=== PATIENT | female | born 1985 | race Caucasian/White ===

== ENCOUNTER → 2017-09-06 | Outpatient (CLI) | payer MEDICAID ==
[2016-01-25 16:27] VITALS: BMI 23.6
[~2017-09-06] MED LIST: CLON-327 PO; CYCL10TA29 PO; HYDR-385 PO; HYDR-4228 PO; HYDR-4309 PO; IBUP200C74 PO; IBUP800T37 PO; LOR5/325 PO; MEDR150D IM; METH4TAB66 PO; NO HOME MEDS; ONDA4TAB PO; PREN-129 PO; PROM-110 PO; TRAM-420 PO
--- NOTE | 2017-09-06 16:33 | RADIOLOGY IMAGING REPORT ---
FACILITY: [facility] [place] PATIENT NAME: Tamica Robles : 1985 MR: [id number] V: [id number] EXAM DATE: ORDERING PHYSICIAN: RAMBO HURD TECHNOLOGIST: Location: [facility] [place] Patient: Tamica Robles : 1985 Visit/Account:[id number] Date of Sevice: 09/06/2017 GALLBLADDER History: Right upper quadrant pain. Comparison study: None Procedure: There has been satisfactory and complete grayscale ultrasonic evaluation of the abdomen. Findings: Liver: The liver has normal echotexture and no focal lesions are seen. Surface contour is smooth. The re is hepatopedal blood flow in the main portal vein and there is no abdominal ascites. Biliary: The gallbladder is normal and there is no gallstone disease or biliary ductal dilatation. T he sonographic Louie sign is negative. The common bile duct measures 2.8 mm. Pancreas: The pancreas is normal size and echotexture. No peripancreatic fluid collections are identi fied. Right kidney: There is no hydronephrosis in the right kidney. IMPRESSION: 1. Normal gallbladder without gallstone disease or biliary ductal dilatation. 2. Normal liver. Report Dictated By: Kamran Muñiz MD at 09/06/2017 2:27 PM Report E-Signed By: Kamran Muñiz MD at 09/06/2017 4:28 PM WSN:[id number]
== END ==
LOC: US 11:43
PROVIDERS: ATTEND Student in an Organized Health Care Education/Training Program
DX: R10.11 Right upper quadrant pain (principal)
CPT/HCPCS: 76705

== ENCOUNTER → 2017-09-12 | Outpatient (CLI) | payer MEDICAID ==
[2016-01-25 16:27] VITALS: BMI 23.6
[~2017-09-12] MED LIST changes: +SINCALIDE 5 MCG VIAL INJ ONE; +WATER FOR INJ,STERILE 20 ML 20 ML ONE
--- NOTE | 2017-09-12 15:34 | RADIOLOGY IMAGING REPORT ---
FACILITY: [facility] PATIENT NAME: Tamica Robles : 1985 MR: [id number] V: [id number] EXAM DATE: ORDERING PHYSICIAN: RAJEEV PRITCHARD TECHNOLOGIST: Location: [facility] [place] Patient: Tamica Robles : 1985 Visit/Account:[id number] Date of Sevice: 09/12/2017 Nuclear hepatobiliary scan with Kinevac. HISTORY: Right upper quadrant pain. COMPARISON: Gallbladder ultrasound 09/06/2017. 6.1 mCi technetium 99 mebrofenin was injected intravenously. Images were obtained of the upper abdom en before and after administration of intravenous Kinevac. FINDINGS: A heterogeneous area is present in the right upper abdomen probably representing attenuation by overl kee soft tissues. Activity is present in the right arm probably representing pooling of radionuclid e in the venous system above the IV injection site. Hepatic clearance is otherwise unremarkable. In tra and extrahepatic bile duct activity are present at five minutes. Gallbladder activity is present at 13 minutes. Intestinal activity is present at eight minutes. Following Kinevac administration t he gallbladder ejection fraction is 89% which is within normal limits. Following the Kinevac administration the patient experienced nausea, right upper quadrant pain, and s weating. The nausea and right upper quadrant pain were similar but much more intense compared to her usual symptoms. Her symptoms had begun to subside before she was discharged from the department. IMPRESSION: Patent cystic duct. Reproduction of symptoms following Kinevac administration suggesting possible biliary dyskinesia. Report Dictated By: Shola Gill MD at 09/12/2017 3:18 PM Report E-Signed By: Shola Gill MD at 09/12/2017 3:31 PM WSN:[email or web address]
== END ==
LOC: NUC 01:29
PROVIDERS: ATTEND Surgery
DX: R93.2 Abnormal findings on diagnostic imaging of liver and biliary tract (principal)
CPT/HCPCS: 78226; A9537; J2805

== ENCOUNTER 2017-09-27 09:00 | Emergency (ER) | payer MEDICAID ==
[2016-01-25 16:27] VITALS: Wt 70.3 kg
[~2017-09-27 09:00] MED LIST changes: -SINCALIDE 5 MCG VIAL INJ ONE; -WATER FOR INJ,STERILE 20 ML 20 ML ONE
--- NOTE | 2017-09-27 09:03 | ER Report ---
History and Physical Time Seen By MD: 09:03 STEPHANIE/JULIA This is a 32-year-old female who presents to the emergency department complaining of worsening right upper quadrant pain and nausea and vomiting for the past 2 weeks. She states that she has had the same yet worsening symptoms ongoing for the past 2 months, but the symptoms have worsened over the past 2 weeks. Within the past 3 weeks she has had to pull lab draws, a right upper quadrant ultrasound, and a HIDA scan. All of the tests have been normal thus far. She says the pain has not improved. She has an appointment to see Dr. Padilla on October 01. She denies fever chills. No chest pain. The pain is contained in the right upper quadrant yet sometimes radiates to the back. She denies any recent trauma. She has no urinary symptoms. Remainder of the 14 system rev: Yes Allergies: Coded Allergies: No Known Drug Allergies (Unverified , 09/27/17) Home Meds Discontinued Scripts Ibuprofen (IBUPROFEN) 800 Mg Tablet, 800 MG PO Q8H@04,12,20, #30 TAB 0 Refills Prov:RAMBO HURD 01/26/16 Reviewed Nurses Notes: Yes Old Medical Records Reviewed: Yes Hx Smoking: Yes Smoking Status: Current: Every Day Smoker Exposure to Second Hand Smoke?: Yes Hx Substance Use Disorder: Yes (narcotics) Hx Alcohol Use: No Constitutional Vital Sign - Last 24 Hours 09/27/17 09/27/17 09/27/17 09/27/17 09:00 09:05 09:15 09:20 Temp 97.3 Pulse 71 62 Resp 16 B/P (MAP) 115/82 115/82 (93) 116/69 (85) Pulse Ox 95 95 85 O2 Delivery Room Air 09/27/17 09/27/17 09/27/17 09/27/17 09:30 09:35 09:45 09:50 Pulse 52 54 B/P (MAP) 104/72 (83) 118/75 (89) Pulse Ox 94 95 09/27/17 09/27/17 09/27/17 09/27/17 10:00 10:05 10:15 10:20 Pulse 57 51 B/P (MAP) 130/103 (112) 107/76 (86) Pulse Ox 94 94 09/27/17 09/27/17 09/27/1709/27/18 10:25 10:30 10:40 10:45 Pulse 62 56 B/P (MAP) 108/75 (86) 102/79 (87) Pulse Ox 95 95 09/27/17 09/27/17 10:55 11:00 Pulse 66 B/P (MAP) 115/94 (101) Pulse Ox 97 Intake and Output 09/27/17 09/27/17 09/28/17 14:59 22:59 06:59 Intake Total 1000 ml Balance 1000 ml Physical Exam General Appearance: The patient is alert, has no immediate need for airway protection and no current signs of toxicity. Eyes: Pupils equal and round no injection. Respiratory: cta b/l no w/r/r Cardiac: regular rate and rhythm Gastrointestinal: Abdomen is soft with TTP of the RUQ. No midepigastric TTP Extremities have full range of motion and are non tender. Skin: No rashes or lesions. DIFFERENTIAL DIAGNOSIS: After history and physical exam differential diagnosis was considered for abdominal pain including but not limited to appendicitis, cholecystitis, gastritis and urinary tract infection, ectopic Medical Decision Making Data Points Result Diagram: 09/27/17 0909 09/27/17 0909 Laboratory Hematology Test 09/27/17 09:06 09/27/17 09:09 Urine Color Lyndsey Urine Clarity Slightly-cloudy Urine pH 5.0 pH (4.8-9.5) Urine Specific [place] 1.032 Urine Protein 100 mg/dL (NEGATIVE) Urine Glucose (UA) Negative mg/dL (NEGATIVE) Urine Ketones Trace mg/dL (NEGATIVE) Urine Blood Negative (NEGATIVE) Urine Nitrite Negative (NEGATIVE) Urine Bilirubin Small (NEGATIVE) Urine Urobilinogen 2.0 mg/dL (0.2-1.9) Urine Leukocyte Esterase Trace (NEGATIVE) Urine RBC 1 /HPF (0-2/HPF) Urine WBC 5 /HPF (0-5/HPF) Urine Squamous Epithelial Cells Many /LPF (</=FEW) Urine Bacteria Negative /HPF (NONE-FEW) Urine Mucus Few /HPF (NONE-FEW) Urine HCG, Qualitative Negative (NEGATIVE) Red Blood Count 5.24 M/uL (4.17-5.56) Mean Corpuscular Volume 89.0 fL (80.0-96.0) Mean Corpuscular Hemoglobin 32.0 pg (26.0-33.0) Mean Corpuscular Hemoglobin Concent 35.9 g/dL (32.0-36.0) Red Cell Distribution Width 12.4 % (11.5-14.5) Mean Platelet Volume 8.0 fL (7.2-11.1) Neutrophils (%) (Auto) 44.1 % (39.4-72.5) Lymphocytes (%) (Auto) 46.4 % (17.6-49.6) Monocytes (%) (Auto) 7.7 % (4.1-12.4) Eosinophils (%) (Auto) 0.9 % (0.4-6.7) Basophils (%) (Auto) 0.9 % (0.3-1.4) Nucleated RBC Relative Count (auto) 0.1 /100WBC Neutrophils # (Auto) 2.7 K/uL (2.0-7.4) Lymphocytes # (Auto) 2.9 K/uL (1.3-3.6) Monocytes # (Auto) 0.5 K/uL (0.3-1.0) Eosinophils # (Auto) 0.1 K/uL (0.0-0.5) Basophils # (Auto) 0.1 K/uL (0.0-0.1) Nucleated RBC Absolute Count (auto) 0.01 K/uL Sodium Level 143 mmol/L (137-145) Potassium Level 3.3 mmol/L (3.5-5.0) Chloride Level 106 mmol/L (98-107) Carbon Dioxide Level 21 mmol/L (22-31) Blood Urea Nitrogen 12 mg/dl (7-18) Creatinine 0.80 mg/dl (0.52-1.04) Glomerular Filtration Rate Calc > 60.0 Random Glucose 109 mg/dl (75-110) Calcium Level 9.6 mg/dl (8.4-10.2) Total Bilirubin 0.7 mg/dl (0.2-1.3) Aspartate Amino Transf (AST/SGOT) 24 U/L (0-35) Alanine Aminotransferase (ALT/SGPT) 25 U/L (0-56) Alkaline Phosphatase 100 U/L (0-126) Total Protein 7.8 gm/dl (6.3-8.2) Albumin 4.7 g/dl (3.5-5.0) Lipase 94 U/L (23-300) Chemistry Test 09/27/17 09:06 09/27/17 09:09 Urine Color Lyndsey Urine Clarity Slightly-cloudy Urine pH 5.0 pH (4.8-9.5) Urine Specific [place] 1.032 Urine Protein 100 mg/dL (NEGATIVE) Urine Glucose (UA) Negative mg/dL (NEGATIVE) Urine Ketones Trace mg/dL (NEGATIVE) Urine Blood Negative (NEGATIVE) Urine Nitrite Negative (NEGATIVE) Urine Bilirubin Small (NEGATIVE) Urine Urobilinogen 2.0 mg/dL (0.2-1.9) Urine Leukocyte Esterase Trace (NEGATIVE) Urine RBC 1 /HPF (0-2/HPF) Urine WBC 5 /HPF (0-5/HPF) Urine Squamous Epithelial Cells Many /LPF (</=FEW) Urine Bacteria Negative /HPF (NONE-FEW) Urine Mucus Few /HPF (NONE-FEW) Urine HCG, Qualitative Negative (NEGATIVE) White Blood Count 6.2 k/uL (4.5-11.0) Red Blood Count 5.24 M/uL (4.17-5.56) Hemoglobin 16.8 g/dL (12.0-16.0) Hematocrit 46.6 % (34.0-47.0) Mean Corpuscular Volume 89.0 fL (80.0-96.0) Mean Corpuscular Hemoglobin 32.0 pg (26.0-33.0) Mean Corpuscular Hemoglobin Concent 35.9 g/dL (32.0-36.0) Red Cell Distribution Width 12.4 % (11.5-14.5) Platelet Count 262 K/uL (150-450) Mean Platelet Volume 8.0 fL (7.2-11.1) Neutrophils (%) (Auto) 44.1 % (39.4-72.5) Lymphocytes (%) (Auto) 46.4 % (17.6-49.6) Monocytes (%) (Auto) 7.7 % (4.1-12.4) Eosinophils (%) (Auto) 0.9 % (0.4-6.7) Basophils (%) (Auto) 0.9 % (0.3-1.4) Nucleated RBC Relative Count (auto) 0.1 /100WBC Neutrophils # (Auto) 2.7 K/uL (2.0-7.4) Lymphocytes # (Auto) 2.9 K/uL (1.3-3.6) Monocytes # (Auto) 0.5 K/uL (0.3-1.0) Eosinophils # (Auto) 0.1 K/uL (0.0-0.5) Basophils # (Auto) 0.1 K/uL (0.0-0.1) Nucleated RBC Absolute Count (auto) 0.01 K/uL Glomerular Filtration Rate Calc > 60.0 Calcium Level 9.6 mg/dl (8.4-10.2) Total Bilirubin 0.7 mg/dl (0.2-1.3) Aspartate Amino Transf (AST/SGOT) 24 U/L (0-35) Alanine Aminotransferase (ALT/SGPT) 25 U/L (0-56) Alkaline Phosphatase 100 U/L (0-126) Total Protein 7.8 gm/dl (6.3-8.2) Albumin 4.7 g/dl (3.5-5.0) Lipase 94 U/L (23-300) Urinalysis Test 09/27/17 09:06 Urine Color Lyndsey Urine Clarity Slightly-cloudy Urine pH 5.0 pH (4.8-9.5) Urine Specific [place] 1.032 Urine Protein 100 mg/dL (NEGATIVE) Urine Glucose (UA) Negative mg/dL (NEGATIVE) Urine Ketones Trace mg/dL (NEGATIVE) Urine Blood Negative (NEGATIVE) Urine Nitrite Negative (NEGATIVE) Urine Bilirubin Small (NEGATIVE) Urine Urobilinogen 2.0 mg/dL (0.2-1.9) Urine Leukocyte Esterase Trace (NEGATIVE) Urine RBC 1 /HPF (0-2/HPF) Urine WBC 5 /HPF (0-5/HPF) Urine Squamous Epithelial Cells Many /LPF (</=FEW) Urine Bacteria Negative /HPF (NONE-FEW) Urine Mucus Few /HPF (NONE-FEW) Urine HCG, Qualitative Negative (NEGATIVE) EKG/Imaging Imaging Results: Ultrasound of the RUQ was obtained. The results of the study are normal. The study was read by the radiologist. I viewed the images myself on the PACS system. ED Course/Re-evaluation Clinical Indication for ER IV: Hydration, IV Access ED Course This is a 32-year-old female who presents to the emergency department with right upper quadrant pain that has been ongoing for almost 2 months but has worsened over the past 2 weeks. She has had 2 normal right upper quadrant ultrasounds in the past 3 weeks and a normal HIDA scan as well. She has normal labs today to include her LFTs and lipase. No fever or chills. No recent trauma , and the remainder of her abdominal exam is benign. She has an appointment to see Dr. Padilla on Sunday to discuss her symptoms and possible definitive care. She received IV fluids, antinausea meds, and anti-spasmodic meds. She is unhappy with her care, and has requested several times to have her "stomach cut open right now." The nurse's and myself spoke with her on multiple occasions of how emergent surgery is not indicated. I offered to order a CT scan of the abdomen and pelvis, although I do not think it is indicated in this setting. She is refusing further treatment, and is signing out AMA. I encouraged her to follow up on Sunday as scheduled. Decision to Disposition Date: Sep 27, 2017 Decision to Disposition Time: 11:50 Depart Departure Latest Vital Signs Vital Signs Date Time Temp Pulse Resp B/P (MAP) Pulse Ox O2 Delivery O2 Flow Rate FiO2 09/27/17 11:00 115/94 (101) 09/27/17 10:55 66 97 09/27/17 09:00 97.3 16 Room Air Impression: Primary Impression: Abdominal pain Condition: Condition Unchanged Disposition: AGAINST MED ADV / DISCONT CARE Referrals: RAMBO HURD DO (PCP) New Scripts No Active Prescriptions or Reported Meds Patient Instructions: Acute Abdominal Pain (ED) Problem Qualifiers Primary Impression: Abdominal pain Abdominal location: right upper quadrant Qualified Codes: R10.11 - Right upper quadrant pain LAMONT MARTINEZ MD Sep 27, 2017 09:03
[2017-09-27] MEDS ORDERED: ONDANSETRON 4 MG/2 ML VIAL IVP ONE (09:10)
[2017-09-27] MEDS ORDERED: NS(*) 0.9% 1000 ML BAG 1,000 ML IV ONE (09:10)
[2017-09-27 09:19] LABS: PLATELET COUNT, AUTOMATED 262 K/uL (150-450)
[2017-09-27] MEDS ORDERED: DICYCLOMINE HCL 10 MG CAP PO ONE (10:35)
--- NOTE | 2017-09-27 10:47 | RADIOLOGY IMAGING REPORT ---
FACILITY: [facility] [place] PATIENT NAME: Tamica Robles : 1985 MR: [id number] V: [id number] EXAM DATE: ORDERING PHYSICIAN: LAMONT MARTINEZ TECHNOLOGIST: Location: [facility] Patient: Tamica Robles : 1985 Visit/Account:[id number] Date of Sevice: 09/27/2017 GALLBLADDER History: 32-year-old female with worsening right upper quadrant pain. Comparison study: Abdominal ultrasound from September 06, 2017. Procedure: There has been satisfactory and complete grayscale ultrasonic evaluation of the abdomen. Findings: Liver: The liver has normal echotexture and no focal lesions are seen. Surface contour is smooth. The re is hepatopedal blood flow in the main portal vein and there is no abdominal ascites. Biliary: The gallbladder is normal and there is no gallstone disease or biliary ductal dilatation. T he sonographic Louie sign shows mild sensitivity in the right upper quadrant, but the significance o r etiology of this finding is uncertain. The common bile duct measures 2.2 mm. Pancreas: Normal. No peripancreatic fluid collections seen. Kidneys: There is no hydronephrosis involving the right kidney. IMPRESSION: 1. Normal abdominal ultrasound. Normal gallbladder without gallstone disease or biliary ductal dila tation. Note the patient did have some sensitivity during imaging of the right upper quadrant in the region of the gallbladder, but the significance or etiology of this finding is uncertain. Report Dictated By: Kamran Muñiz MD at 09/27/2017 10:39 AM Report E-Signed By: Kamran Muñiz MD at 09/27/2017 10:43 AM WSN:[email or web address]
[2017-09-27] MEDS ORDERED: METOCLOPRAMIDE 10 MG/2 ML SDV IVP ONE (11:20)
[2017-09-27] MEDS ORDERED: diphenhydrAMINE 50 MG/ML VIAL IVP ONE (11:20)
[2017-09-27 11:39] VITALS: BP 124/73
== END 2017-09-27 11:40 | disposition left against medical advice (07) ==
LOC: ER 09:03
DX: R10.11 Right upper quadrant pain (principal)
CPT/HCPCS: 76705; 81001; 81025; 83690; 85025; 96361; 96374; 96375; 99284; J1200; J2405; J2765; J7030; 82040; 82247; 82310; 82374; 82435; 82565; 82947; 84075; 84132; 84155; 84295; 84450; 84460; 84520

== ENCOUNTER 2017-10-04 01:01 | Day surgery (SDC) | payer MEDICAID ==
[2016-01-25 16:27] VITALS: Ht 170.2 cm; Wt 67.1 kg
[~2017-10-04] VITALS: Ht 170.2 cm; Wt 67.1 kg
[2017-10-04] VITALS (7 sets, daily range): BP systolic 113–131; BP diastolic 62–81
[2017-10-04] MEDS ORDERED: ROPIVACAINE 0.5% 20 ML VIAL ONE ×2 (07:27→10:53)
[2017-10-04] MEDS ORDERED: fentaNYL CITR 250 MCG/5 ML AMP ONE (08:08)
[2017-10-04] MEDS ORDERED: PROPOFOL EMUL(*) 10MG/ML 20 ML 20 ML ONE (08:17)
[2017-10-04] MEDS ORDERED: ONDANSETRON 4 MG/2 ML VIAL ONE (08:17)
[2017-10-04] MEDS ORDERED: LIDOCAINE MPF 1% 5 ML VIAL ONE (08:17)
[2017-10-04] MEDS ORDERED: DEXAMETHASONE SOD PHOS 10MG/ML ONE (08:17)
[2017-10-04] MEDS ORDERED: KETAMINE HCL 200 MG/20 ML MDV ONE (08:19)
[2017-10-04 08:49] LABS: PLATELET COUNT, AUTOMATED 225 K/uL (150-450)
[2017-10-04] MEDS ORDERED: MIDAZOLAM 2 MG/2 ML VIAL IVP PRN (09:05)
[2017-10-04] MEDS ORDERED: INDOCYANINE GREEN 25 MG VIAL IVP ONE (09:05)
[2017-10-04] MEDS ORDERED: NORMOSOL R SOLN(*) 1000 ML BAG 1,000 ML IV PRN (09:05)
[2017-10-04] MEDS ORDERED: FAMOTIDINE 20 MG TAB PO ONE (09:05)
[2017-10-04] MEDS ORDERED: AMPICILLIN/SULBACT (*) 3 GM VL 3 GM in NS(*) 0.9% 100 ML BAG 100 ML IVPB ONE (09:05)
[2017-10-04] MEDS ORDERED: LIDOCAINE/SOD BICARB 8.4% SYR ID ONE (09:05)
[2017-10-04] MEDS ORDERED: ACETAMINOPHEN(*)1000 MG/100 ML 100 ML IVPB ONE (10:58)
[2017-10-04] MEDS ORDERED: ROCURONIUM BROM 10 MG/ML 10 ML ONE (11:00)
[2017-10-04] MEDS ORDERED: HALOPERIDOL LACT 5 MG/ML VIAL IM ONE (11:23)
[2017-10-04] MEDS ORDERED: fentaNYL CITR 100 MCG/2 ML AMP ONE ×2 (11:51→12:39)
[2017-10-04] MEDS ORDERED: DOCU-416 PO (12:34)
[2017-10-04] MEDS ORDERED: OXYC-854 PO (12:34)
--- NOTE | 2017-10-04 12:37 | Short(Outpt) Discharge Summary ---
Discharge Summary Reason for Hosp/Final Diag: (1) Biliary colic symptom Status: Chronic Hospital Course & Plan: Robotic cholecystectomy completed without problems. (2) Abdominal pain Status: Acute Departure Discharge to: Home, Self Care Discharge Instructions Home Meds Active Scripts Docusate Sodium (COLACE) 100 Mg Capsule, 1 CAP PO BID, #30 CAP 0 Refills TAKE WITH A FULL GLASS OF WATER Prov:RAJEEV PRITCHARD MD 10/04/17 Oxycodone Hcl/Acet 5/325 Mg (ENDOCET 5-325 TABLET) 1 Each Tablet, 1-2 TAB PO Q4H Y for PAIN, #30 TAB 0 Refills Prov:RAJEEV PRITCHARD MD 10/04/17 Ondansetron (ZOFRAN ODT) 4 Mg Tab.rapdis, 1 TAB PO TID, #10 TAB.SHAKA 0 Refills Prov:RAJEEV PRITCHARD MD 10/01/17 Discontinued Scripts Ibuprofen (IBUPROFEN) 800 Mg Tablet, 800 MG PO Q8H@04,12,20, #30 TAB 0 Refills Prov:RAMBO HURD DO 01/26/16 Follow up Referrals: General Surgery - 10/23/17 @ Surgery, General with Rajeev Pritchard Md You have a follow up appointment scheduled with Dr. Pritchard on 10/23/17, at 10:00am. Diet: Regular Activity: As Tolerated Special Instructions: You may remove the white surgical dressing on 10/06/17, then you can shower. After showering, leave the incisions open to air but leave the steristrips in place until they fall off on their own. Do not immerse the incisions for 2 weeks. Problem Qualifiers (1) Abdominal pain: Abdominal location: right upper quadrant Qualified Codes: R10.11 - Right upper quadrant pain RAJEEV PRITCHARD MD Oct 04, 2017 12:37
--- NOTE | 2017-10-04 12:44 | Post Operative Progress Note ---
Post Operative Progress Note Date: Oct 04, 2017 Time: 12:37 Surgeon: Drew Dictation number: [id number] Anesthesia: GETA by Dr. Cruz Pre-Op Diagnosis: Biliary colic Post-Op Diagnosis: VAIBHAV Findings: C/W dx Procedure(s): Robotic cholecystectomy Specimen Removed:(May be N/A): GB and contents Complications: None Fluids: See anesthesia record Estimated Blood Loss: Minimal Date OP Note Dictated: Oct 04, 2017 Time OP Note Dictated: 12:38 RAJEEV PRITCHARD MD Oct 04, 2017 12:43
--- NOTE | 2017-10-04 15:27 | OPERATIVE REPORT 1 ---
EVENT DATE: October 04, 2017 SURGEON: Shahab Russell MD ANESTHESIOLOGIST: Savage Cruz MD ANESTHESIA: General endotracheal anesthesia. PREOPERATIVE DIAGNOSIS Biliary colic. POSTOPERATIVE DIAGNOSIS Biliary colic. PROCEDURE PERFORMED Robotic cholecystectomy. COMPLICATIONS None. CONDITION Stable. BLOOD LOSS Minimal. INDICATIONS This is a 32-year-old female who presented to my office with postprandial right upper quadrant abdominal pain that was also made worse with especially greasy foods. She had a normal right upper quadrant ultrasound and essentially a normal HIDA scan, but the CCK really exacerbated her symptoms and exactly mimicked the symptoms that she presented to me with. We discussed further workup, but she was requesting to have her gallbladder out. DESCRIPTION OF PROCEDURE The patient was brought to the operating room, placed supine on the operating table. General endotracheal anesthesia was administered, and her abdomen was prepped and draped in a sterile fashion. Timeout was completed. I injected the infraumbilical skin with 0.5% ropivacaine plain. I made a curvilinear smiley face-type incision in the infraumbilical rim and dissected through the dermis and subcutaneous fat. I identified the midline fascia, made a vertical incision in the midline fascia, then grasped the fascial edges with Tera clamps, and then entered the peritoneal cavity with my finger. I placed two interrupted 0 Vicryl sutures transversely through the vertical fascial defect and inserted a 12 mm robotic Narciso-type port through this and secured it in place with sutures. I insufflated the abdomen to a pressure of 15 mmHg and inserted the robotic camera through this port. Next, I placed an 8 mm port in the right mid abdomen and then two 8 mm ports, one in the left upper quadrant and one in the left mid abdomen under direct visualization. The patient was placed in reverse Trendelenburg and planed towards her left. The robot was brought in and docked and targeted. The instruments were inserted, and I scrubbed out and went to the console. I grasped the fundus of the gallbladder and retracted it towards the patient's right shoulder. She had dense adhesions around the infundibulum, including between the duodenum and the infundibulum, but these were rather easily divided, and the infundibulum was cleaned off. I divided the peritoneum over the medial and lateral aspects of the gallbladder and stripped the peritoneum down and then carefully dissected through the fibrotic tissue in the triangle of Calot. I identified the cystic artery. This was cleaned off circumferentially, and it was clipped proximally and distally and divided between clips. I cleaned off the cystic duct circumferentially and used the Firefly technology with ICG and could clearly see the glowing of the cystic duct as well as the common hepatic duct and common bile duct. I was well away from the common duct system. There were no apparent aberrant duct structures. I then clipped the ducts distally with three clips and one clip at the infundibulum-cystic duct junction and divided the cystic duct between clips. I then divided the posterior attachment of the gallbladder, it from the gallbladder fossa, and then the gallbladder was placed in a surgical specimen retrieval bag and removed from the abdomen through the umbilical port site. I irrigated and dried the right upper quadrant , inspected the cystic duct and arteries, as well as the gallbladder fossa for any bile leaks or bleeding, and there was none. I removed all the instruments, and the robot was undocked. The abdomen was desufflated, and all the ports were removed. I placed a running 0 Vicryl suture through the midline fascia between the first two sutures and then tired all three of these down with good reapproximation of the fascial edges with no remaining fascial defect. The skin at each port site was closed with 4-0 Monocryl running subcuticular sutures. Skin was cleaned and dried, and Steri-Strips were applied, followed by sterile surgical dressings. The patient was awakened, extubated in the operating room, and transported to the recovery room in stable condition having tolerated the procedure without any apparent problems. MATEO
[2017-10-04] MEDS ORDERED: SUGAMMADEX SOD 200 MG/2 ML SDV ONE (15:28)
[2017-10-05] MEDS ORDERED: PREGABALIN 150 MG CAPSULE PO ONE (08:20)
== END 2017-10-04 13:52 | disposition home or self-care (01) ==
LOC: OR 01:01
PROVIDERS: ATTEND Surgery
DX: K80.50 Calculus of bile duct without cholangitis or cholecystitis without obstruction (principal)
CPT/HCPCS: 36415; 47562; 81025; 85025; 88304; J0131; J0295; J1100; J1630; J2001; J2250; J2405; J2704; J2795; J3010; J3490; J7050; S2900

== ENCOUNTER 2017-10-08 09:10 | Emergency (ER) | payer MEDICAID ==
[2016-01-25 16:27] VITALS: Wt 67.1 kg
[~2017-10-08 09:10] MED LIST changes: +DOCU-416 PO; +OXYC-854 PO
[2017-10-08] MEDS ORDERED: NS(*) 0.9% 1000 ML BAG 1,000 ML IV ONE (09:29)
[2017-10-08] MEDS ORDERED: ONDANSETRON 4 MG/2 ML VIAL IVP ONE (09:30)
[2017-10-08] MEDS ORDERED: HYDROmorphone* 1 MG/ML 1 MG/ML ML IVP ONE (09:30)
[2017-10-08] MEDS ORDERED: IOPAMIDOL 76% 75 ML INFUS BTL 75 ML ONE (09:50)
--- NOTE | 2017-10-08 09:53 | ER Report ---
History and Physical Time Seen By MD: 09:30 Hx. of Stated Complaint: pt reports umbilical pain post op choley last HPI/ROS CHIEF COMPLAINT: Abdominal pain HISTORY OF PRESENT ILLNESS: Patient is a 32-year-old female here with complaints of abdominal pain status post cholecystectomy on October 04. Patient reports that she has taken all of her home pain medications which equates approximately 30 oxycodone without significant relief of symptoms. Patient reports worsening pain for which she called her surgeon who recommended evaluation in the emergency department. Patient has been passing bowel movements with some pain. She denies fevers, chills, chest pain, shortness breath. REVIEW OF SYSTEMS: Constitutional: No fever, no chills. Eyes: No discharge. ENT: No sore throat. Cardiovascular: No chest pain, no palpitations. Respiratory: No cough, no shortness of breath. Gastrointestinal: + diffuse abdominal pain, no vomiting. Genitourinary: No hematuria. Musculoskeletal: No back pain. Skin: No rashes. Neurological: No headache. Allergies: Coded Allergies: No Known Drug Allergies (Unverified , 10/08/17) Home Meds Active Scripts Naproxen Sodium (ALEVE) 220 Mg Capsule, 440 MG PO TID for 7 Days, #30 CAPSULE Prov:PHILIPP MICHAUD DO 10/08/17 Docusate Sodium (COLACE) 100 Mg Capsule, 1 CAP PO BID, #30 CAP 0 Refills TAKE WITH A FULL GLASS OF WATER Prov:RAJEEV PRITCHARD MD 10/04/17 Oxycodone Hcl/Acet 5/325 Mg (ENDOCET 5-325 TABLET) 1 Each Tablet, 1-2 TAB PO Q4H Y for PAIN, #30 TAB 0 Refills Prov:RAJEEV PRITCHARD MD 10/04/17 Ondansetron (ZOFRAN ODT) 4 Mg Tab.rapdis, 1 TAB PO TID, #10 TAB.SHAKA 0 Refills Prov:RAJEEV PRITCHARD MD 10/01/17 Hx Smoking: Yes (1/2 -1 PPD X 17 YRS) Smoking Status: Current: Every Day Smoker Exposure to Second Hand Smoke?: Yes Hx Substance Use Disorder: Yes (LAST USE 09/29/17) Hx Alcohol Use: No Constitutional Vital Sign - Last 24 Hours 10/08/17 10/08/17 10/08/17 10/08/17 09:10 09:17 09:25 09:30 Temp 97.5 Pulse 81 74 Resp 18 B/P (MAP) 105/78 105/78 (87) 111/76 (88) Pulse Ox 94 95 O2 Delivery Room Air 10/08/17 10/08/17 10/08/17 10/08/17 09:40 09:55 10:00 10:10 Pulse 64 58 54 B/P (MAP) 112/74 (87) Pulse Ox 94 92 93 10/08/17 10/08/17 10/08/17 10/08/17 10:15 10:45 10:50 11:00 Pulse 62 57 54 B/P (MAP) 112/72 (85) Pulse Ox 93 93 93 10/08/17 10/08/17 11:05 11:11 Pulse 58 B/P (MAP) 117/68 (84) Pulse Ox 93 Physical Exam General Appearance: The patient is alert, has no immediate need for airway protection and no signs of toxicity. + mild distress secondary to pain Eyes: Pupils equal and round no pallor or injection. ENT, Mouth: Mucous membranes are moist. Respiratory: There are no retractions, lungs are clear to auscultation. Cardiovascular: Regular rate and rhythm. Gastrointestinal: Abdomen is soft and + diffusely tender on palpation without distension, no masses, bowel sounds normal. Neurological: No focal deficits Skin: + well healing surgical wounds on abdomen without drainage Musculoskeletal: Neck is supple non tender. Extremities are nontender, nonswollen and have full range of motion. DIFFERENTIAL DIAGNOSIS: After history and physical exam differential diagnosis was considered for postoperative pain, infection, abscess, postop bleeding Medical Decision Making Data Points Result Diagram: 10/08/1740 10/08/17 0940 Laboratory Hematology Test 10/08/17 09:17 10/08/17 09:40 Urine Color Yellow Urine Clarity Clear Urine pH 5.0 pH (4.8-9.5) Urine Specific [place] 1.027 Urine Protein Negative mg/dL (NEGATIVE) Urine Glucose (UA) Negative mg/dL (NEGATIVE) Urine Ketones Negative mg/dL (NEGATIVE) Urine Blood Negative (NEGATIVE) Urine Nitrite Negative (NEGATIVE) Urine Bilirubin Negative (NEGATIVE) Urine Urobilinogen 2.0 mg/dL (0.2-1.9) Urine Leukocyte Esterase Negative (NEGATIVE) Urine RBC None /HPF (0-2/HPF) Urine WBC 2 /HPF (0-5/HPF) Urine Squamous Epithelial Cells Many /LPF (</=FEW) Urine Bacteria Negative /HPF (NONE-FEW) Urine Mucus Few /HPF (NONE-FEW) Red Blood Count 5.07 M/uL (4.17-5.56) Mean Corpuscular Volume 89.3 fL (80.0-96.0) Mean Corpuscular Hemoglobin 31.8 pg (26.0-33.0) Mean Corpuscular Hemoglobin Concent 35.7 g/dL (32.0-36.0) Red Cell Distribution Width 12.4 % (11.5-14.5) Mean Platelet Volume 8.5 fL (7.2-11.1) Neutrophils (%) (Auto) 76.5 % (39.4-72.5) Lymphocytes (%) (Auto) 18.1 % (17.6-49.6) Monocytes (%) (Auto) 5.0 % (4.1-12.4) Eosinophils (%) (Auto) 0.1 % (0.4-6.7) Basophils (%) (Auto) 0.3 % (0.3-1.4) Nucleated RBC Relative Count (auto) 0.1 /100WBC Neutrophils # (Auto) 6.8 K/uL (2.0-7.4) Lymphocytes # (Auto) 1.6 K/uL (1.3-3.6) Monocytes # (Auto) 0.4 K/uL (0.3-1.0) Eosinophils # (Auto) 0.0 K/uL (0.0-0.5) Basophils # (Auto) 0.0 K/uL (0.0-0.1) Nucleated RBC Absolute Count (auto) 0.01 K/uL Peripheral Blood Smear Yes Y/N Prothrombin Time 13.0 seconds (12.0-14.4) Prothromb Time International Ratio 0.98 Activated Partial Thromboplast Time 25 seconds (23-35) Sodium Level 140 mmol/L (137-145) Potassium Level 3.4 mmol/L (3.5-5.0) Chloride Level 103 mmol/L (98-107) Carbon Dioxide Level 21 mmol/L (22-31) Blood Urea Nitrogen 9 mg/dl (7-18) Creatinine 0.70 mg/dl (0.52-1.04) Glomerular Filtration Rate Calc > 60.0 Random Glucose 102 mg/dl (75-110) Calcium Level 9.3 mg/dl (8.4-10.2) Total Bilirubin 0.5 mg/dl (0.2-1.3) Aspartate Amino Transf (AST/SGOT) 19 U/L (0-35) Alanine Aminotransferase (ALT/SGPT) 54 U/L (0-56) Alkaline Phosphatase 81 U/L (0-126) Total Protein 7.2 g/dl (6.3-8.2) Albumin 4.3 g/dl (3.5-5.0) Lipase 52 U/L (23-300) Human Chorionic Gonadotropin, Qual Negative (NEGATIVE) Chemistry Test 10/08/17 09:17 10/08/17 09:40 Urine Color Yellow Urine Clarity Clear Urine pH 5.0 pH (4.8-9.5) Urine Specific [place] 1.027 Urine Protein Negative mg/dL (NEGATIVE) Urine Glucose (UA) Negative mg/dL (NEGATIVE) Urine Ketones Negative mg/dL (NEGATIVE) Urine Blood Negative (NEGATIVE) Urine Nitrite Negative (NEGATIVE) Urine Bilirubin Negative (NEGATIVE) Urine Urobilinogen 2.0 mg/dL (0.2-1.9) Urine Leukocyte Esterase Negative (NEGATIVE) Urine RBC None /HPF (0-2/HPF) Urine WBC 2 /HPF (0-5/HPF) Urine Squamous Epithelial Cells Many /LPF (</=FEW) Urine Bacteria Negative /HPF (NONE-FEW) Urine Mucus Few /HPF (NONE-FEW) White Blood Count 8.9 k/uL (4.5-11.0) Red Blood Count 5.07 M/uL (4.17-5.56) Hemoglobin 16.1 g/dL (12.0-16.0) Hematocrit 45.3 % (34.0-47.0) Mean Corpuscular Volume 89.3 fL (80.0-96.0) Mean Corpuscular Hemoglobin 31.8 pg (26.0-33.0) Mean Corpuscular Hemoglobin Concent 35.7 g/dL (32.0-36.0) Red Cell Distribution Width 12.4 % (11.5-14.5) Platelet Count 232 K/uL (150-450) Mean Platelet Volume 8.5 fL (7.2-11.1) Neutrophils (%) (Auto) 76.5 % (39.4-72.5) Lymphocytes (%) (Auto) 18.1 % (17.6-49.6) Monocytes (%) (Auto) 5.0 % (4.1-12.4) Eosinophils (%) (Auto) 0.1 % (0.4-6.7) Basophils (%) (Auto) 0.3 % (0.3-1.4) Nucleated RBC Relative Count (auto) 0.1 /100WBC Neutrophils # (Auto) 6.8 K/uL (2.0-7.4) Lymphocytes # (Auto) 1.6 K/uL (1.3-3.6) Monocytes # (Auto) 0.4 K/uL (0.3-1.0) Eosinophils # (Auto) 0.0 K/uL (0.0-0.5) Basophils # (Auto) 0.0 K/uL (0.0-0.1) Nucleated RBC Absolute Count (auto) 0.01 K/uL Peripheral Blood Smear Yes Y/N Prothrombin Time 13.0 seconds (12.0-14.4) Prothromb Time International Ratio 0.98 Activated Partial Thromboplast Time 25 seconds (23-35) Glomerular Filtration Rate Calc > 60.0 Calcium Level 9.3 mg/dl (8.4-10.2) Total Bilirubin 0.5 mg/dl (0.2-1.3) Aspartate Amino Transf (AST/SGOT) 19 U/L (0-35) Alanine Aminotransferase (ALT/SGPT) 54 U/L (0-56) Alkaline Phosphatase 81 U/L (0-126) Total Protein 7.2 g/dl (6.3-8.2) Albumin 4.3 g/dl (3.5-5.0) Lipase 52 U/L (23-300) Human Chorionic Gonadotropin, Qual Negative (NEGATIVE) Coagulation Test 10/08/17 09:40 Prothrombin Time 13.0 seconds Prothromb Time International Ratio 0.98 Activated Partial Thromboplast Time 25 seconds Urinalysis Test 10/08/17 09:17 Urine Color Yellow Urine Clarity Clear Urine pH 5.0 pH (4.8-9.5) Urine Specific [place] 1.027 Urine Protein Negative mg/dL (NEGATIVE) Urine Glucose (UA) Negative mg/dL (NEGATIVE) Urine Ketones Negative mg/dL (NEGATIVE) Urine Blood Negative (NEGATIVE) Urine Nitrite Negative (NEGATIVE) Urine Bilirubin Negative (NEGATIVE) Urine Urobilinogen 2.0 mg/dL (0.2-1.9) Urine Leukocyte Esterase Negative (NEGATIVE) Urine RBC None /HPF (0-2/HPF) Urine WBC 2 /HPF (0-5/HPF) Urine Squamous Epithelial Cells Many /LPF (</=FEW) Urine Bacteria Negative /HPF (NONE-FEW) Urine Mucus Few /HPF (NONE-FEW) EKG/Imaging Imaging ABDOMEN/PELVIS WITH CONTRAST HISTORY: Abdominal pain status post cholecystectomy on October 04, 2017. TECHNIQUE: CT abdomen and pelvis with intravenous contrast. One of the following dose optimization techniques was utilized in the performance of this exam: Automated exposure control; adjustment of the mA and/ or kV according to the patient's size; or use of an iterative reconstruction technique. Specific details can be referenced in the facility's radiology CT exam operational policy. CONTRAST: 75 mL Isovue-370. COMPARISON: None. FINDINGS: Visualized lung bases: Negative. Hepatobiliary: Gallbladder surgically absent. There is a trace amount of postoperative fluid versus hematoma abutting the liver within the gallbladder fossa (image 50 of series 2). No postoperative abscess or biloma identified. Spleen: Negative. Adrenals: Negative. Pancreas: Negative. Kidneys/: Negative. GI: Negative. Appendix is unremarkable. Vessels/spaces/nodes: Negative. No organizing fluid collections identified. No free fluid. Bones/soft tissues: Mild heterogeneity surrounding the umbilicus without organizing fluid collection. Otherwise negative. IMPRESSION: 1. No acute findings. 2. Postoperative changes from cholecystectomy without concerning complication. There is a small amount of postoperative fluid versus hematoma body the liver within the gallbladder fossa. There is also mild subcutaneous heterogeneity surrounding the umbilicus without organizing fluid collection. ED Course/Re-evaluation ED Course Patient is a 32-year-old female here with complaints of diffuse abdominal pain status post cholecystectomy on the . Patient reportedly has exhausted her supply of home pain medications and was in contact with her surgeon who advised her to come to the emergency department for further evaluation. CT imaging showed expected postsurgical findings with no signs of infection or abscess formation or free fluid in the abdomen. Labs are unremarkable. Patient was given analgesia, antiemetics, fluid bolus with moderate relief of symptoms.. I advised the patient to follow-up with her surgeon for further care. Patient voiced understanding. Decision to Disposition Date: Oct 08, 2017 Decision to Disposition Time: 11:13 Depart Departure Latest Vital Signs Vital Signs Date Time Temp Pulse Resp B/P (MAP) Pulse Ox O2 Delivery O2 Flow Rate FiO2 10/08/17 11:11 117/68 (84) 10/08/17 11:05 58 93 10/08/17 09:10 97.5 18 Room Air Impression: Primary Impression: Abdominal pain Condition: Improved Disposition: HOME OR SELF-CARE Referrals: RAMBO HURD DO (PCP) New Scripts Naproxen Sodium (ALEVE) 220 Mg Capsule 440 MG PO TID for 7 Days, #30 CAPSULE Prov: PHILIPP MICHAUD DO 10/08/17 Patient Instructions: Abdominal Pain (ED) Additional Instructions: Please take naproxen as needed for pain control. Your CT scan showed normal post operative changes. Please follow up with your surgeon for routine post operative care and pain control. Please return with worsening pain, fevers, inability to tolerate oral intake, bleeding. PHILIPP MICHAUD DO Oct 08, 2017 09:53
[2017-10-08 10:07] LABS: INR 0.98
[2017-10-08 10:26] LABS: PLATELET COUNT, AUTOMATED 232 K/uL (150-450)
--- NOTE | 2017-10-08 11:05 | RADIOLOGY IMAGING REPORT ---
FACILITY: [facility] PATIENT NAME: Tamica Robles : 1985 MR: [id number] V: [id number] EXAM DATE: ORDERING PHYSICIAN: PHILIPP MICHAUD TECHNOLOGIST: Location: [facility] Patient: Tamica Robles : 1985 Visit/Account:[id number] Date of Sevice: 10/08/2017 ABDOMEN/PELVIS WITH CONTRAST HISTORY: Abdominal pain status post cholecystectomy on October 04, 2017. TECHNIQUE: CT abdomen and pelvis with intravenous contrast. One of the following dose optimization techniques was utilized in the performance of this exam: Autom ated exposure control; adjustment of the mA and/or kV according to the patient's size; or use of an i terative reconstruction technique. Specific details can be referenced in the facility's radiology C T exam operational policy. CONTRAST: 75 mL Isovue-370. COMPARISON: None. FINDINGS: Visualized lung bases: Negative. Hepatobiliary: Gallbladder surgically absent. There is a trace amount of postoperative fluid versus hematoma abutting the liver within the gallbladder fossa (image 50 of series 2). No postoperative abs cess or biloma identified. Spleen: Negative. Adrenals: Negative. Pancreas: Negative. Kidneys/: Negative. GI: Negative. Appendix is unremarkable. Vessels/spaces/nodes: Negative. No organizing fluid collections identified. No free fluid. Bones/soft tissues: Mild heterogeneity surrounding the umbilicus without organizing fluid collection . Otherwise negative. IMPRESSION: 1. No acute findings. 2. Postoperative changes from cholecystectomy without concerning complication. There is a small amoun t of postoperative fluid versus hematoma body the liver within the gallbladder fossa. There is also m ild subcutaneous heterogeneity surrounding the umbilicus without organizing fluid collection. Report Dictated By: Darek Perry MD at 10/08/2017 10:55 AM Report E-Signed By: Darek Perry MD at 10/08/2017 11:00 AM WSN:[id number]
[2017-10-08 11:11] VITALS: BP 117/68
[2017-10-08] MEDS ORDERED: NAPR220C12 PO (11:11)
[2017-10-10] MEDS ORDERED: OXYC-854 PO (15:22)
== END 2017-10-08 11:16 | disposition home or self-care (01) ==
LOC: ER 09:46
DX: R10.9 Unspecified abdominal pain (principal)
CPT/HCPCS: 74177; 81001; 83690; 84703; 85025; 85610; 85730; 96374; 96375; 99283; J1170; J2405; Q9967; 82040; 82247; 82310; 82374; 82435; 82565; 82947; 84075; 84132; 84155; 84295; 84450; 84460; 84520

== ENCOUNTER 2017-10-28 20:48 | Emergency (ER) | payer MEDICAID ==
[2016-01-25 16:27] VITALS: BMI 23.6
[~2017-10-28 20:48] MED LIST changes: +NAPR220C12 PO
[2017-10-28] MEDS ORDERED: traMADol 50 MG TAB PO ONE (21:05)
[2017-10-28] MEDS ORDERED: ACETAMINOPHEN 325 MG TAB PO ONE (21:05)
[2017-10-28] MEDS ORDERED: TRAM-420 PO (21:49)
--- NOTE | 2017-10-28 21:49 | ER Report ---
History and Physical Time Seen By MD: 20:59 Hx. of Stated Complaint: Pt is reporting left lower abdominal pain. No NVD. Pt had cholecystectomy on October 04 and has been cleared for work on . Pt has a physical job and developed left lower abdominal pain and pt reports abdomen is swollen. There are well approximated laparoscopy sites. HPI/ROS CHIEF COMPLAINT: Left upper quadrant abdominal pain HISTORY OF PRESENT ILLNESS: 32-year-old female presents a to the ER concerned about left upper quadrant abdominal pain all day long. It became much worse this afternoon. She was laying down with her daughter with ice pack on her left upper quadrant. She fell asleep. She woke up from a nap with increased pain. She's had some nausea but no vomiting. Her history significant for recent laparoscopic cholecystectomy performed approximately 3 weeks ago. Patient's been doing well. She's had no drainage or symptoms around her incision sites. She's noted no change in her bowel habits. Patient began to have left upper quadrant pain. Patient notes no exacerbating or alleviating factors. She denies constipation or diarrhea. She denies dysuria, frequency or hematuria. Patient took ibuprofen 800 mg without relief of her pain. REVIEW OF SYSTEMS: Respiratory: No cough, no dyspnea. Cardiovascular: No chest pain, no palpitations. Gastrointestinal: As above Musculoskeletal: No back pain. Allergies: Coded Allergies: No Known Drug Allergies (Unverified , 10/08/17) Home Meds Active Scripts Tramadol Hcl (TRAMADOL HCL) 50 Mg Tablet, 1 TAB PO Q6H Y for PAIN, #12 MG TAKE ONE TABLET BY MOUTH EVERY SIX HOURS NEEDED Prov:MARY BETH EDUARDO DO 10/28/17 Naproxen Sodium (ALEVE) 220 Mg Capsule, 440 MG PO TID for 7 Days, #30 CAPSULE Prov:PHILIPP MICHAUD DO 10/08/17 Docusate Sodium (COLACE) 100 Mg Capsule, 1 CAP PO BID, #30 CAP 0 Refills TAKE WITH A FULL GLASS OF WATER Prov:RAJEEV PRITCHARD MD 10/04/17 Ondansetron (ZOFRAN ODT) 4 Mg Tab.rapdis, 1 TAB PO TID, #10 TAB.SHAKA 0 Refills Prov:RAJEEV PRITCHARD MD 10/01/17 Hx Smoking: Yes (1/2 -1 PPD X 17 YRS) Smoking Status: Current: Every Day Smoker Exposure to Second Hand Smoke?: Yes Hx Substance Use Disorder: Yes (LAST USE 09/29/17) Hx Alcohol Use: No Constitutional Vital Sign - Last 24 Hours 10/28/17 10/28/17 10/28/17 10/28/17 20:52 20:52 21:03 21:33 Temp 98.4 Pulse 87 79 67 Resp 16 B/P (MAP) 119/78 (92) 119/78 Pulse Ox 96 96 97 O2 Delivery Room Air 10/28/17 10/28/17 10/28/17 21:38 21:53 21:56 Pulse 70 85 Resp 16 B/P (MAP) 101/60 (74) 101/72 (82) Pulse Ox 96 95 92 O2 Delivery Room Air Physical Exam General Appearance: The patient is alert, has no immediate need for airway protection and no current signs of toxicity. Vital signs stable, afebrile, pulse ox normal, mild distress HEENT: Pupils equal and round no injection. Oropharynx without redness or exudate, mucous membranes are moist Respiratory: Chest is non tender, lungs are clear to auscultation. No chest wall tenderness Cardiac: regular rate and rhythm, no murmur Gastrointestinal: Abdomen is soft, mild left upper quadrant tenderness, no rebound or guarding, no masses, bowel sounds normal. Exam initially, incisions shows no abnormalities. There is no induration, no fluids, no nodules. Suggest any complications. Musculoskeletal: Neck: Neck is supple and non tender. Extremities have full range of motion and are non tender. Skin: No rashes or lesions. DIFFERENTIAL DIAGNOSIS: After history and physical exam differential diagnosis was considered for abdominal pain including but not limited to appendicitis, cholecystitis, gastritis and urinary tract infection. Medical Decision Making Data Points Laboratory Hematology Test 10/28/17 21:00 Urine Color Yellow Urine Clarity Slightly-cloudy Urine pH 5.0 pH (4.8-9.5) Urine Specific [place] 1.028 Urine Protein Negative mg/dL (NEGATIVE) Urine Glucose (UA) Negative mg/dL (NEGATIVE) Urine Ketones Negative mg/dL (NEGATIVE) Urine Blood Negative (NEGATIVE) Urine Nitrite Negative (NEGATIVE) Urine Bilirubin Negative (NEGATIVE) Urine Urobilinogen 2.0 mg/dL (0.2-1.9) Urine Leukocyte Esterase Negative (NEGATIVE) Urine RBC None /HPF (0-2/HPF) Urine WBC 5 /HPF (0-5/HPF) Urine Squamous Epithelial Cells Many /LPF (</=FEW) Urine Bacteria Few /HPF (NONE-FEW) Urine Mucus Few /HPF (NONE-FEW) Urine HCG, Qualitative Negative (NEGATIVE) Chemistry Test 10/28/17 21:00 Urine Color Yellow Urine Clarity Slightly-cloudy Urine pH 5.0 pH (4.8-9.5) Urine Specific [place] 1.028 Urine Protein Negative mg/dL (NEGATIVE) Urine Glucose (UA) Negative mg/dL (NEGATIVE) Urine Ketones Negative mg/dL (NEGATIVE) Urine Blood Negative (NEGATIVE) Urine Nitrite Negative (NEGATIVE) Urine Bilirubin Negative (NEGATIVE) Urine Urobilinogen 2.0 mg/dL (0.2-1.9) Urine Leukocyte Esterase Negative (NEGATIVE) Urine RBC None /HPF (0-2/HPF) Urine WBC 5 /HPF (0-5/HPF) Urine Squamous Epithelial Cells Many /LPF (</=FEW) Urine Bacteria Few /HPF (NONE-FEW) Urine Mucus Few /HPF (NONE-FEW) Urine HCG, Qualitative Negative (NEGATIVE) Urinalysis Test 10/28/17 21:00 Urine Color Yellow Urine Clarity Slightly-cloudy Urine pH 5.0 pH (4.8-9.5) Urine Specific [place] 1.028 Urine Protein Negative mg/dL (NEGATIVE) Urine Glucose (UA) Negative mg/dL (NEGATIVE) Urine Ketones Negative mg/dL (NEGATIVE) Urine Blood Negative (NEGATIVE) Urine Nitrite Negative (NEGATIVE) Urine Bilirubin Negative (NEGATIVE) Urine Urobilinogen 2.0 mg/dL (0.2-1.9) Urine Leukocyte Esterase Negative (NEGATIVE) Urine RBC None /HPF (0-2/HPF) Urine WBC 5 /HPF (0-5/HPF) Urine Squamous Epithelial Cells Many /LPF (</=FEW) Urine Bacteria Few /HPF (NONE-FEW) Urine Mucus Few /HPF (NONE-FEW) Urine HCG, Qualitative Negative (NEGATIVE) EKG/Imaging Imaging X-ray: KUB was obtained. I viewed the images myself on the PACS system. My interpretation of the images is: Nonspecific bowel gas pattern,, no abnormal calcifications, no evidence of bowel obstruction. The radiologist interpretation had no clinically significant variation from this interpretation. ED Course/Re-evaluation ED Course Patient was admitted to an examination room. H&P was done. The differential diagnoses was considered. On clinical examination. Patient has benign nonsurgical abdomen. She has mild left upper quadrant tenderness. Urinalysis is unremarkable. Urinary is negative. KUB is unremarkable. Patient' s incisions are unremarkable. Patient's better with Tylenol and tramadol for pain relief. Patient's given a prescription for tramadol for limited pain relief. She is advised to continue ibuprofen 800 mg as needed. She is advised to rest her stomach with clear liquids. Decision to Disposition Date: Oct 28, 2017 Decision to Disposition Time: 21:47 Depart Departure Latest Vital Signs Vital Signs Date Time Temp Pulse Resp B/P (MAP) Pulse Ox O2 Delivery O2 Flow Rate FiO2 10/28/17 21:56 85 16 101/72 (82) 92 Room Air 10/28/17 20:52 98.4 Impression: Primary Impression: Left upper quadrant abdominal pain of unknown etiology Additional Impression: Status post laparoscopic cholecystectomy Condition: Improved Disposition: HOME OR SELF-CARE Referrals: RAMBO HURD DO (PCP) New Scripts Tramadol Hcl (TRAMADOL HCL) 50 Mg Tablet 1 TAB PO Q6H Y for PAIN, #12 MG TAKE ONE TABLET BY MOUTH EVERY SIX HOURS NEEDED Prov: MARY BETH EDUARDO DO 10/28/17 Patient Instructions: Abdominal Pain (ED), Clear Liquid Diet (ED) Additional Instructions: Follow clear liquid diet for 24 hours, then advance to the brat diet, bananas, rice, applesauce and toast Take ibuprofen 200 mg take 3 tablets 3 times a day with food Follow-up with your primary care or the surgeon that did your cholecystectomy if unimproved in 3-5 days Problem Qualifiers MARY BETH EDUARDO DO Oct 28, 2017 21:49
[2017-10-28 21:56] VITALS: BP 101/72
--- NOTE | 2017-10-28 21:57 | RADIOLOGY IMAGING REPORT ---
FACILITY: [facility] PATIENT NAME: Tamica Robles : 1985 MR: [id number] V: [id number] EXAM DATE: ORDERING PHYSICIAN: MARY BETH EDUARDO TECHNOLOGIST: Location: [facility] Patient: Tamica Robles : 1985 Visit/Account:[id number] Date of Sevice: 10/28/2017 KUB SINGLE VIEW ABDOMEN HISTORY: LUQ pain COMPARISON: X-ray 10/26/2013. CT abdomen/pelvis 10/08/2017 FINDINGS: Lower chest: Not covered Abdomen: No free intraperitoneal air. There is a nonobstructive bowel gas pattern. There are no abn ormal calcifications. Bony structures are unremarkable. IMPRESSION: 1. Normal Report Dictated By: Joaquín Ross MD at 10/28/2017 9:51 PM Report E-Signed By: Joaquín Ross MD at 10/28/2017 9:52 PM [id number]
== END 2017-10-28 21:57 | disposition home or self-care (01) ==
LOC: ER 21:06
DX: R10.12 Left upper quadrant pain (principal)
CPT/HCPCS: 74018; 81001; 81025; 99283

== ENCOUNTER 2018-05-06 12:19 | Emergency (ER) | payer MEDICAID ==
[2016-01-25 16:27] VITALS: Wt 68.0 kg
[~2018-05-06 12:19] MED LIST changes: +CIPDEXPT LEFT EAR; -HYDR-4309 PO; +HYDR-653 PO; +MEDR150V11 IM
--- NOTE | 2018-05-06 12:33 | ER Report ---
History and Physical Time Seen By MD: 12:29 Hx. of Stated Complaint: pt c/o slip and fall on ice last night at 1999. Lumbosacral pain. No loss of bowel or bladder control. Ambulatory with slow but steady gait. PMS intact distally bilaterally. HPI/ROS CHIEF COMPLAINT: Slip and fall HISTORY OF PRESENT ILLNESS: This is a 32-year-old female who presents to the emergency department for slip and fall on ice. Patient states that last night around 8:00 she was lifting her daughter out of their car, she began to slip and fell down landing flat on her buttocks. She states she has had pain since, has been increasing in intensity, she states that when she walks it feels as though something is rubbing together in her lower back. No loss of bowel or bladder, no bladder retention. No dysuria or hematuria. No changes in bowel patterns. Patient states that she was at work this morning and lifting heavy boxes and was unable to do so and the pain was so intense, therefore she came in for further evaluation. No nausea or vomiting. No chest pain or shortness of breath. Denies hitting her head. REVIEW OF SYSTEMS: Respiratory: No cough, no dyspnea. Cardiovascular: No chest pain, no palpitations. Gastrointestinal: No vomiting, no abdominal pain. Musculoskeletal: As above. Allergies: Coded Allergies: No Known Drug Allergies (Unverified , 10/08/17) Home Meds Active Scripts Metaxalone (SKELAXIN) 800 Mg Tablet, 800 MG PO TID, #12 TAB 0 Refills Prov:ROXIE PAULSON GAS METER CHECKER-BC 05/06/18 Ciprofloxacin/Dexamethasone 0.3%-0.1% Otic Ray (CIPRODEX 0.3%-0.1% OTIC SUSP) 7.5 Ml Soln, 4 DROP LEFT EAR BID for 10 Days, #1 BOT 0 Refills Prov:SANJUANA SALAZAR DNP, GAS METER CHECKER-BC 12/11/17 Ibuprofen (IBUPROFEN) 800 Mg Tablet, 1 TAB PO Q8H PRN for PAIN, #30 TAB 6 Refil ls TAKE WITH FOOD EVERY 8 HOURS Prov:RAMBO HURD DO 12/03/17 Tramadol Hcl (TRAMADOL HCL) 50 Mg Tablet, 1 TAB PO Q6H PRN for PAIN, #12 MG TAKE ONE TABLET BY MOUTH EVERY SIX HOURS NEEDED Prov:MARY BETH EDUARDO DO 10/28/17 Naproxen Sodium (ALEVE) 220 Mg Capsule, 440 MG PO TID for 7 Days, #30 CAPSULE Prov:PHILIPP MICHAUD DO 10/08/17 Docusate Sodium (COLACE) 100 Mg Capsule, 1 CAP PO BID, #30 CAP 0 Refills TAKE WITH A FULL GLASS OF WATER Prov:RAJEEV PRITCHARD MD 10/04/17 Ondansetron (ZOFRAN ODT) 4 Mg Tab.rapdis, 1 TAB PO TID, #10 TAB.SHAKA 0 Refills Prov:RAJEEV PRITCHARD MD 10/01/17 Past Medical/Surgical History The patient has a past medical and surgical history of migraines, asthma, urinary tract infections, elbow fracture, cholecystectomy, breast and teeth extraction, tonsillectomy, adenoidectomy. Reviewed Nurses Notes: Yes Hx Smoking: Yes (1/2 -1 PPD X 17 YRS) Smoking Status: Current: Every Day Smoker Exposure to Second Hand Smoke?: Yes Hx Substance Use Disorder: Yes (LAST USE 09/29/17) Hx Alcohol Use: No Constitutional Vital Sign - Last 24 Hours 05/06/18 05/06/18 05/06/18 05/06/18 12:19 12:26 12:29 12:30 Temp 98.0 Pulse ??? 89 Resp 16 B/P (MAP) 131/83 (99) 131/83 119/70 (86) Pulse Ox 93 O2 Delivery Room Air 05/06/18 05/06/18 05/06/18 05/06/18 12:34 12:49 13:00 13:04 Pulse 118 ??? 78 B/P (MAP) 114/74 (87) Pulse Ox 96 93 05/06/18 05/06/18 05/06/18 05/06/18 13:19 13:30 13:34 13:39 Pulse 76 78 73 B/P (MAP) 116/70 (85) Pulse Ox 93 94 94 O2 Delivery Room Air 05/06/18 13:54 Pulse Ox 93 O2 Delivery Room Air Physical Exam General Appearance: The patient is alert, has no immediate need for airway protection and no current signs of toxicity. Eyes: Pupils equal and round no injection. Respiratory: Chest is non tender, lungs are clear to auscultation. Cardiac: regular rate and rhythm. Gastrointestinal: Abdomen is soft and non tender, no masses, bowel sounds normal. Musculoskeletal: Neck: Neck is supple and non tender. Centralized Lumbosacral pain with palpation, no crepitus, bruising or obvious deformities. Extremities able to perform straight leg raise however significant pain to the lumbosacral area with left straight-leg raise, less so with right. Slight decrease in strength on the left leg. No numbness or tingling. Intact dorsal plantar flexion and extension. Skin: No rashes or lesions. DIFFERENTIAL DIAGNOSIS: After history and physical exam differential diagnosis was considered for back pain including but not limited to muscular pain, herniated disc, spine fracture, intra-abdominal causes and urinary tract infection. Medical Decision Making EKG/Imaging Imaging Location: [facility] - [place] Patient: Tamica Robles : 1985 Visit/Account:[id number] Date of Sevice: 05/06/2018 Four views lumbar spine, three views of the sacroiliac joints HISTORY: fall, pain, difficult to ambulate COMPARISON: CT examination the abdomen and pelvis from October 08, 2017 FINDINGS: Four views of the lumbar spine are submitted. Five lumbar type vertebra with anatomic alignment. No fracture or new destructive osseous process. No significant underlying degenerative change. Bilateral oblique images demonstrate normal appearance of the facet joints without evidence of a pars d efect. 3. Dedicated views of the SI joints demonstrate symmetric appearance without underlying degenerative change, ankylosis, increased sclerosis or erosions. The sacrum appears intact. IMPRESSION: 1. No acute osseous finding involving lumbar spine. 2. No acute bony finding involving the SI joints or the visualized portion of the sacrum. Report Dictated By: Joel Patel MD at 05/06/2018 1:25 PM Report E-Signed By: Joel Patel MD at 05/06/2018 1:35 PM WSN:[email or web address] Course/Re-evaluation ED Course The patient was admitted to room. A history and physical were obtained. Differential diagnoses were considered. 2 mg Flexeril were given. An x-ray of the lumbar and sacrum were negative for any acute osseous abnormalities. I reviewed the results with the patient. I did tell the patient that this is likely a bruise of her tailbone, I also recommended getting a donut to sit on, and also following up with [facility] if no improvement in the next 5-7 days. Patient was given a prescription for Skelaxin. She does have 800 mg ibuprofen at home, I did tell her she can alternate with acetaminophen. Patient expressed understanding, was in agreement with this plan care and discharged home. She will return with any other concerns. Decision to Disposition Date: May 06, 2018 Decision to Disposition Time: 13:52 Depart Departure Latest Vital Signs Vital Signs Date Time Temp Pulse Resp B/P (MAP) Pulse Ox O2 Delivery O2 Flow Rate FiO2 05/06/18 13:54 93 Room Air 05/06/18 13:39 73 05/06/18 13:30 116/70 (85) 05/06/18 12:29 98.0 16 Impression: Primary Impression: Lumbosacral injury Additional Impressions: Fall from slipping on ice Lumbosacral pain Condition: Stable Disposition: HOME OR SELF-CARE Referrals: RAMBO HURD DO (PCP) [facility] New Scripts Metaxalone (SKELAXIN) 800 Mg Tablet 800 MG PO TID, #12 TAB 0 Refills Prov: ROXIE PAULSON-ALBERT 05/06/18 Patient Instructions: Acute Low Back Pain (ED), Fall Prevention (ED) Additional Instructions: Normal Xrays. I believe you have bruised your tailbone and lower back. If there is no relief of your symptoms within the next 5-7 days please follow up with [facility]. Take 800mg Ibuprofen every 8 hours as needed for pain. Take 500-1000mg Acetaminophen every 8 hours as needed for pain, alternate with Ibuprofen. Take the Skelaxin as needed for muscular pain and cramps, as directed. Drink plenty of water. Get plenty of rest. Return to the ED for any other concerns or worsening symptoms. Problem Qualifiers Primary Impression: Lumbosacral injury Encounter type: initial encounter Qualified Codes: S39.92XA - Unspecified injury of lower back, initial encounter Additional Impressions: Fall from slipping on ice Encounter type: initial encounter Qualified Codes: W00.9XXA - Unspecified fall due to ice and snow, initial encounter ROXIE PAULSON-ALBERT May 06, 2018 12:33
[2018-05-06] MEDS ORDERED: CYCLOBENZAPRINE HCL 10 MG TAB PO ONE (12:40)
[2018-05-06 13:30] VITALS: BP 116/70
--- NOTE | 2018-05-06 13:40 | RADIOLOGY IMAGING REPORT ---
FACILITY: [facility] - [place] PATIENT NAME: Tamica Robles : 1985 MR: [id number] V: [id number] EXAM DATE: ORDERING PHYSICIAN: ORXIE PAULSON TECHNOLOGIST: Location: [facility] Patient: Tamica Robles : 1985 Visit/Account:[id number] Date of Sevice: 05/06/2018 Four views lumbar spine, three views of the sacroiliac joints HISTORY: fall, pain, difficult to ambulate COMPARISON: CT examination the abdomen and pelvis from October 08, 2017 FINDINGS: Four views of the lumbar spine are submitted. Five lumbar type vertebra with anatomic alignment. No fracture or new destructive osseous process. No significant underlying degenerative change. Bilate ral oblique images demonstrate normal appearance of the facet joints without evidence of a pars defec t. 3. Dedicated views of the SI joints demonstrate symmetric appearance without underlying degenerative change, ankylosis, increased sclerosis or erosions. The sacrum appears intact. IMPRESSION: 1. No acute osseous finding involving lumbar spine. 2. No acute bony finding involving the SI joints or the visualized portion of the sacrum. Report Dictated By: Joel Patel MD at 05/06/2018 1:25 PM Report E-Signed By: Joel Patel MD at 05/06/2018 1:35 PM WSN:[email or web address]
--- NOTE | 2018-05-06 13:41 | RADIOLOGY IMAGING REPORT ---
FACILITY: [facility] - [place] PATIENT NAME: Tamica Robles : 1985 MR: [id number] V: [id number] EXAM DATE: ORDERING PHYSICIAN: ROXIE PAULSON TECHNOLOGIST: Location: [facility] Patient: Tamica Robles : 1985 Visit/Account:[id number] Date of Sevice: 05/06/2018 Four views lumbar spine, three views of the sacroiliac joints HISTORY: fall, pain, difficult to ambulate COMPARISON: CT examination the abdomen and pelvis from October 08, 2017 FINDINGS: Four views of the lumbar spine are submitted. Five lumbar type vertebra with anatomic alignment. No fracture or new destructive osseous process. No significant underlying degenerative change. Bilate ral oblique images demonstrate normal appearance of the facet joints without evidence of a pars defec t. 3. Dedicated views of the SI joints demonstrate symmetric appearance without underlying degenerative change, ankylosis, increased sclerosis or erosions. The sacrum appears intact. IMPRESSION: 1. No acute osseous finding involving lumbar spine. 2. No acute bony finding involving the SI joints or the visualized portion of the sacrum. Report Dictated By: Joel Patel MD at 05/06/2018 1:25 PM Report E-Signed By: Joel Patel MD at 05/06/2018 1:35 PM WSN:[email or web address]
[2018-05-06] MEDS ORDERED: META800T18 PO (13:57)
== END 2018-05-06 13:58 | disposition home or self-care (01) ==
LOC: ER 12:34
DX: S39.92XA Unspecified injury of lower back, initial encounter (principal); M54.5 Low back pain; W00.0XXA Fall on same level due to ice and snow, initial encounter
CPT/HCPCS: 72120; 72202; 99284

== ENCOUNTER → 2018-06-27 | Outpatient (CLI) | payer MEDICAID ==
[2016-01-25 16:27] VITALS: BMI 23.6
[~2018-06-27] MED LIST changes: +META800T18 PO
--- NOTE | 2018-06-27 12:03 | RADIOLOGY IMAGING REPORT ---
[place]AC[place] [facility] [place]IENT NAME: Tamica Robles : 1985 MR: [id number] V: [id number] EXAM DATE: ORDERING PHYSICIAN: RAJEEV PERDOMO TECHNOLOGIST: [place] [facility] [place] : 1985 Visit/Account:[id number] Date of Sevice: 06/27/2018 Study: CT scan of the brain without intravenous contrast. Indication:Altered metal status Comparison study:None Technique: Multiple axial images were obtained through the brain without the use of intravenous contr ast. One of the following dose optimization techniques was utilized in the performance of this exam: Autom ated exposure control; adjustment of the mA and/or kV according to the patient's size; or use of an i terative reconstruction technique. Specific details can be referenced in the facility's radiology C T exam operational policy. The examination demonstrates no evidence of acute intracranial hemorrhage. There is no evidence of ex tra-axial collection or hydrocephalus. There is no abnormal density identified within the brain parenchyma. There is no evidence of disruption of the peripheral chang-white junction. The bony structures are unremarkable. IMPRESSION:Unremarkable CT scan of the brain without contrast. Report Dictated By: Cresencio Vieira at 06/27/2018 11:55 AM Report E-Signed By: Cresencio Vieira at 06/27/2018 11:58 AM WSN:[email or web address]
--- NOTE | 2018-06-27 12:04 | RADIOLOGY IMAGING REPORT ---
FACILITY: [facility] PATIENT NAME: Tamica Robles : 1985 MR: [id number] V: [id number] EXAM DATE: ORDERING PHYSICIAN: RAJEEV PERDOMO [place]CHN[place]: [place] [facility] [place] : 1985 Visit/Account:[id number] Date of Sevice: 06/27/2018 Study: CT VERTEBRA CERVICAL (NON CON) Indication: Injury COMPARISON STUDIES: none TECHNIQUE: Axial images were obtained from the skull base through the upper thoracic spine without i ntravenous contrast. Coronal and sagittal reformatted images were obtained from the axial source data . One of the following dose optimization techniques was utilized in the performance of this exam: Autom ated exposure control; adjustment of the mA and/or kV according to the patient's size; or use of an i terative reconstruction technique. Specific details can be referenced in the facility's radiology C T exam operational policy. FINDINGS: Pre-vertebral soft tissues: Negative Alignment: negative Vertebral bodies: Negative Posterior elements: Negative Disc Spaces: Negative Visualized soft tissues anterior neck: Negative Visualized lung / mediastinum: Negative IMPRESSION: Negative for acute fracture or spondylolisthesis. Report Dictated By: Cresencio Vieira at 06/27/2018 11:58 AM Report E-Signed By: Cresencio Vieira at 06/27/2018 12:00 PM WSN:[email or web address]
== END ==
LOC: CT 10:58
PROVIDERS: ATTEND Nurse Practitioner Family
DX: G44.309 Post-traumatic headache, unspecified, not intractable (principal); S09.90XA Unspecified injury of head, initial encounter
CPT/HCPCS: 70450; 72125